=== PATIENT | male | born 1990 | race African-American/Black ===

== ENCOUNTER 2024-11-07 15:59 | Emergency (ER) | payer BC ==
[~2024-11-07] VITALS: Ht 188 cm; Wt 99.8 kg
[2024-11-07] MEDS ORDERED: ONDANSETRON HCL/PF 4 MG/2 ML VIAL ONE (16:46)
[2024-11-07] MEDS ORDERED: ACETAMINOPHEN 325 MG TABLET ONE (16:46)
[2024-11-07] MEDS ORDERED: FAMOTIDINE/PF INJ 20 MG/2 ML VIAL IV ONE (16:47)
[2024-11-07] MEDS: IV NS 0.9% 1,000 ML BAG IV ONE (16:52)
[2024-11-07 16:53] LABS: BASOPHILS % (AUTO) 0.3 % (0.0-2.0); HEMATOCRIT 41 % (39-51); HEMOGLOBIN 13.8 g/dL (13.5-17.5); LYMPHOCYTES % (AUTO) 8.2 % (20.0-44.0); MEAN CORPUSCULAR HEMOGLOBIN 29 PG (26.0-33.0); MEAN CORPUSCULAR HGB CONC 34 g/dl (31.0-36.0); MEAN CORPUSCULAR VOLUME 85 fL (80-96); MONOCYTES # (AUTO) 1.5 K/uL (0.1-1.30); MONOCYTES % (AUTO) 11.9 % (2.0-12.0); NEUTROPHILS % (AUTO) 79.6 % (43.0-81.0); PLATELET COUNT (AUTO) 232 K/uL (150-450); RED BLOOD CELL COUNT(AUTO) 4.77 MIL/uL (4.5-6.0); RED CELL DISTRIBUTION WIDTH 13.7 % (11.5-15.0); WHITE BLOOD COUNT (AUTO) 12.5 K/uL (4.3-11.0)
[2024-11-07] MEDS: FAMOTIDINE/PF INJ 20 MG/2 ML VIAL IV ONE (16:53)
[2024-11-07] MEDS: ONDANSETRON HCL/PF 4 MG/2 ML VIAL IV ONE (16:53)
[2024-11-07 16:54] VITALS: TEMP 98.1
[2024-11-07] MEDS: ACETAMINOPHEN 325 MG TABLET PO ONE (16:54)
[2024-11-07 17:02] LABS: ALCOHOL, BLOOD < 3 mg/dL (0-10); LIPASE 13 U/L (16-77)
[2024-11-07 17:08] LABS: ALANINE AMINOTRANSFERASE 26 U/L (12-78); ALBUMIN 3.8 g/dL (3.4-5.0); ALKALINE PHOSPHATASE 54 U/L (46-116); ASPARTATE AMINOTRANSFERASE 11 U/L (15-37); BILIRUBIN,DIRECT 0.2 mg/dL (0.0-0.2); BILIRUBIN,TOTAL 0.8 mg/dL (0.2-1.0); CALCIUM, SERUM 8.4 mg/dL (8.5-10.1); CARBON DIOXIDE 28 mmol/L (21-32); CHLORIDE 100 mmol/L (98-107); CREATININE 1.1 mg/dL (0.6-1.3); GLUCOSE 108 mg/dL (74-106); POTASSIUM 3.4 mmol/L (3.5-5.1); SODIUM SERUM 134 mmol/L (136-145); TOTAL PROTEIN, SERUM 7.5 g/dL (6.4-8.2); UREA NITROGEN, BLOOD 12 mg/dL (7-18)
[2024-11-07 18:55] LABS: AMPHETAMINE, URINE NEGATIVE (NEGATIVE); BARBITURATE, URINE NEGATIVE (NEGATIVE); BENZODIAZEPINE, URINE NEGATIVE (NEGATIVE); CANNABINOID, URINE NEGATIVE (NEGATIVE); COCCAINE, URINE NEGATIVE (NEGATIVE); OPIATE, URINE NEGATIVE (NEGATIVE); PHENCYCLIDINE SCREEN,URINE NEGATIVE (NEGATIVE)
[2024-11-07 22:50] VITALS: BP 119/78; O2SAT 98
== END 2024-11-07 21:00 | disposition home or self-care (01) ==
LOC: ER 15:59
DX: R07.9 Chest pain, unspecified (principal); R10.9 Unspecified abdominal pain; R11.2 Nausea with vomiting, unspecified; R06.02 Shortness of breath; R19.7 Diarrhea, unspecified; Z88.2 Allergy status to sulfonamides; Z20.822 Contact with and (suspected) exposure to COVID-19
CPT/HCPCS: 99285; 96374; 96361; 96375; 93005; 87804 ×2; 71045; 74176; 85025; 80048; 83690; 80076; 36415; 84484 ×2; 87426; 80320; 80307; J3490; J2405; J7030; G0480